=== PATIENT | male | born 1965 | race Caucasian/White ===

== ENCOUNTER 2018-07-27 12:04 | Day surgery (SDC) | payer BC ==
[~2018-07-27] VITALS: Ht 193 cm; Wt 83.5 kg
[2018-07-27 12:36] VITALS: BP 129/66
[2018-07-27] MEDS ORDERED: FOLIC ACID1 MG ORAL (12:47)
[2018-07-27] MEDS ORDERED: ABILIFY20 MG ORAL (12:47)
[2018-07-27] MEDS ORDERED: VITAMIN D31000 UNI1 PO (12:47)
--- NOTE | 2018-07-27 13:57 | Pre-Procedure Note/Attestation ---
Pre-Procedure Note/Attestation Complete Prior to Procedure Planned Procedure: not applicable Procedure Narrative: screening colon Indications for Procedure Pre-Operative Diagnosis: screening Attestation I attest that I discussed the nature of the procedure; its benefits; risks and complications; and alternatives (and the risks and benefits of such alternatives ), prior to the procedure, with the patient (or the patient's legal food service representative). I attest that, if there was a reasonable possibility of needing a blood transfusion, the patient (or the patient's legal food service representative) was given the [facility] standardized written summary, pursuant to the Frantz Ponce Blood Safety Act ([place] Health and Safety Code # 1645, as amended). I attest that I re-evaluated the patient just prior to the surgery and that there has been no change in the patient's H&P, except as documented below: Ford Hill MD Jul 27, 2018 13:57
--- NOTE | 2018-07-27 13:58 | Short Stay Surgery H&P ---
History of Present Illness History of Present Illness Chief Complaint see typed H&P HPI Dagoberto Arriaga is a 52 year old male who was admitted on for Colon Screening Medication History Scheduled Aripiprazole* (Abilify*), 25 MG ORAL DAILY, (Reported) Cholecalciferol (Vitamin D3) (Vitamin D3), 1,000 UNIT PO DAILY, (Reported) Folic Acid* (Folic Acid*), 1 MG ORAL DAILY, (Reported) Physical Exam Vital Signs Last Vital Signs Date Time Temp Pulse Resp B/P (MAP) Pulse Ox O2 Delivery O2 Flow Rate FiO2 07/27/18 12:48 Room Air 07/27/18 12:36 98.8 74 18 129/66 97 Plan Attestation Are the patient's medical conditions optimized for surgery? Ford Hill MD Jul 27, 2018 13:58
[2018-07-27] MEDS ORDERED: Propofol 200mg/20ml IV ONE (14:00)
[2018-07-27] MEDS ORDERED: Lidocaine 1% MPF 10mg/ml 5ml ONE (14:00)
[2018-07-27] MEDS ORDERED: LR 1000ml ONE (14:00)
--- NOTE | 2018-07-27 14:26 | Anethesia Preoperative Eval ---
Anesthesia Pre-op PMH/ROS General Date of Evaluation: Jul 27, 2018 Time of Evaluation: 14:01 Anesthesiologist: Jennifer Moncada CRNA ASA Score: ASA 2 Mallampati Score Class I : Soft palate, uvula, fauces, pillars visible Class II: Soft palate, uvula, fauces visible Class III: Soft palate, base of uvula visible Class IV: Only hard plate visible Mallampati Classification: Class II Surgeon: Sergio Diagnosis: Colon screening Surgical Procedure: Colonoscopy Anesthesia History: none Social History: smoking Family History: no anesthesia problems Allergies: Coded Allergies: No Known Allergies (Unverified , 07/27/18) Medications: see eMAR Patient NPO?: Yes NPO Date: Jul 27, 2018 NPO Time: 00:00 Past Medical History Cardiovascular: Denies: HTN, CAD, MS, valve dz, arrhythmia, other Pulmonary: Denies: asthma, COPD, [place], other Gastrointestinal/Genitourinary: Reports: GERD; Denies: CRI, ESRD, other Neurologic/Psychiatric: Reports: other - schizophrenia; Denies: dementia, CVA, depression/anxiety, TIA Endocrine: Denies: DM, hypothyroidism, steroids, other HEENT: Denies: cataract (L), cataract (R), glaucoma, [place] (L), [place] (R), other Hematology/Immune: Denies: anemia, DVT, bleeding disorder, other Musculoskeletal/Integumentary: Denies: OA, RA, DJD, DDD, edema, other PMH Narrative: as noted above PSxH Narrative: ingrown hair Anesthesia Pre-op Phys. Exam Physician Exam Last Vital Signs Date Time Temp Pulse Resp B/P (MAP) Pulse Ox O2 Delivery O2 Flow Rate FiO2 07/27/18 12:48 Room Air 07/27/18 12:36 98.8 74 18 129/66 97 Constitutional: NAD Neurologic: CN 2-12 intact Cardiovascular: RRR Respiratory: CTA Gastrointestinal: S/NT/ND Airway Exam Mallampati Score: Class II MO: full Neck: FROM TMD: 3 FB ROM: full Teeth: intact Dentures: no upper, no lower Anesthesia Pre-op A/P Risk Assessment & Plan Assessment: ASA 2, ok to proceed Plan: MAC Status Change Before Surgery: No Pre-Antibiotics Given Within 1 Hr of Incision: Jennifer Patten CRNA Jul 27, 2018 14:25
[2018-07-27 14:39] VITALS: BP 120/66
[2018-07-27 14:44] VITALS: BP 113/50
--- NOTE | 2018-07-27 14:45 | Brief Operative Note ---
Immediate Post Operative Note Operative Note Chief Complaint: screen Pre-op Diagnosis: screening Procedure: colon snare Post-op Diagnosis: polyp Surgeon: esteban Anesthesiologist: see report Anesthesia: MAC Specimen: yes Complications: none Condition: stable Fluids: recorded Estimated Blood Loss: none Drains: none Implant(s) used?: No Ford Hill MD Jul 27, 2018 14:45
--- NOTE | 2018-07-27 14:45 | Endoscopy Procedure Note ---
Endoscopy Procedure Note General Indication for Procedure: screen Procedures Performed: colonoscopy Operative Findings/Diagnosis: rare tics, polyp/sn at 25 Specimen: yes Pt Tolerated Procedure Well: Yes Estimated Blood Loss: none Anesthesia Anesthesiologist: see notes Anesthesia: MAC Inserted Devices Implant(s) used?: No Quality Quality of Bowel Preparation: Excellent Did scope reach the cecum?: Yes Was there any complications?: No GI Core Measures 50 yrs or older w/o bx or poly: No 10yrs. F/U not recommended: No If not recommended, why?: Above average risk 10 yrs. F/U needed: No 18 years or older w/prev. colo: No <3yrs. since last colonoscopy: No Med reason:<3 yrs.: System Reason:<3 yrs.: Last colonoscopy >= to 3yrs: Yes Ford Hill MD Jul 27, 2018 14:45
--- NOTE | 2018-07-27 14:47 | Immediate Post-Op Evaluation ---
Immediate Post-Op Evalulation Immediate Post-Op Evalulation Procedure: Colonoscopy, polypectomy Date of Evaluation: Jul 27, 2018 Time of Evaluation: 14:39 IV Fluids: LR 800 ml Blood Pressure Systolic: 120 Blood Pressure Diastolic: 66 Pulse Rate: 83 Respiratory Rate: 21 O2 Sat by Pulse Oximetry: 100 Temperature (Fahrenheit): 98.3 Pain Score (1-10): 0 Nausea: No Vomiting: No Patient Status: awake, reacts, patent Hydration Status: adequate Given Within 1 Hr of Incision: Jennifer Patten CRNA Jul 27, 2018 14:47
[2018-07-27 14:49] VITALS: BP 115/52
--- NOTE | 2018-07-27 15:00 | 48 Hour Post Anesthesia Eval ---
Post Anesthesia Evaluation Procedure: Colonoscopy, polypectomy Date of Evaluation: Jul 27, 2018 Time of Evaluation: 14:58 Blood Pressure Systolic: 110 0: 47 Pulse Rate: 69 Respiratory Rate: 16 Temperature (Fahrenheit): 97.2 O2 Sat by Pulse Oximetry: 100 Nausea: No Vomiting: No Pain Intensity: 0 Hydration Status: adequate Cardiopulmonary Status: stable Mental Status/LOC: patient returned to baseline Follow-up Care/Observations: per GI Post-Anesthesia Complications: none Follow-up care needed: N/A Jennifer Moncada CRNA Jul 27, 2018 15:00
[2018-07-27 15:10] VITALS: BP 110/63
[2018-07-27 15:30] VITALS: BP 115/61
--- NOTE | 2018-07-28 02:30 | Operative Note - Dictated ---
DATE OF PROCEDURE: 07/27/2018 PROCEDURES: 1. Screening colonoscopy. 2. Colonoscopy with snare polypectomy. SURGEON: Ford Hill M.D. ANESTHESIA: Please see separate anesthesiologist's notes for details. PRE-ENDOSCOPIC DIAGNOSIS: Need for screening colonoscopy. POST-ENDOSCOPIC DIAGNOSES: 1. Rare diverticulosis in the left side of the colon. 2. Pedunculated 1 cm colon polyp, status post snare polypectomy. DESCRIPTION OF PROCEDURE: The procedure, its risks, indications, alternatives, and possible complications including, but not limited to bleeding, infection, perforation, , and anesthesia complications were explained to the patient and informed consent was obtained. The patient was sedated and the rectal exam was done. A colonoscope was introduced in the rectum and advanced to cecum without difficulty. The cecum was identified by the appearance of the ileocecal valve. The colonoscope was then gradually withdrawn. The mucosa examined carefully. Examination of the colonic mucosa revealed rare small left-sided diverticulosis. In the sigmoid colon at 25-centimeter bhargav, there was a pedunculated polyp measuring approximately 1 cm, which was removed with a hot snare polypectomy without complications. The specimen was sent to the laboratory. The retroflexed view of the rectum was unremarkable. The colonoscope was removed and the patient was sent to recovery in good condition. COMPLICATIONS: None. RECOMMENDATIONS: 1. High-fiber diet. 2. Follow up biopsy results. 3. Outpatient followup. 4. Follow up colonoscopy in 5 years. Thank you for asking me to participate in the care of this patient. Ford Hill M.D. DR: SHEA JOB#: [id number] CC: Zach Noyola M.D.; Fax#: [phone]
== END 2018-07-27 15:45 | disposition home or self-care (01) ==
LOC: GAS 12:04
DX: Z12.11 Encounter for screening for malignant neoplasm of colon (principal); K57.30 Diverticulosis of large intestine without perforation or abscess without bleeding; K63.5 Polyp of colon; D12.5 Benign neoplasm of sigmoid colon; K21.9 Gastro-esophageal reflux disease without esophagitis; F20.9 Schizophrenia, unspecified
CPT/HCPCS: 45384; J2704; 94003; 94150